=== PATIENT | female | born 1950 | race American Indian/Alaskan Native ===

== ENCOUNTER 2019-02-06 05:54 | Emergency (ER) | payer MEDICARE ==
[2019-02-06] MEDS ORDERED: REGLAN IV ONE (06:48)
[2019-02-06] MEDS ORDERED: BENADRYL IV ONE (06:48)
[2019-02-06] MEDS ORDERED: TORADOL IV ONE (06:48)
[2019-02-06 06:49] LABS: Basophils # (Auto) 0.1 K/mm3 (0.0-0.1); Basophils % (Auto) 0.6 % (0.0-1.8); Eosinophils # (Auto) 0.1 K/mm3 (0.0-0.4); Hematocrit 38.2 % (30.3-42.9); Hemoglobin 12.7 gm/dl (10.1-14.3); Lymphocytes # (Auto) 1.6 K/mm3 (1.2-5.4); Lymphocytes % (Auto) 16.7 % (13.4-35.0); Mean Corpuscular HGB Conc 33 % (30-34); Mean Corpuscular Volume 84 fl (79-97); Monocytes # (Auto) 0.4 K/mm3 (0.0-0.8); Monocytes % (Auto) 4.6 % (0.0-7.3); Platelet Count 234 K/mm3 (140-440); Red Blood Count 4.54 M/mm3 (3.65-5.03); Red Cell Distribution Width 15.5 % (13.2-15.2)
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
[2019-02-06 07:00] LABS: INR 0.95 (0.87-1.13)
[2019-02-06 07:01] LABS: Partial Thromboplastin Time 36.2 Sec. (24.2-36.6)
[2019-02-06 07:03] LABS: BUN/Creatinine Ratio 23; Blood Urea Nitrogen 18 mg/dL (7-17); Calcium 9.8 mg/dL (8.4-10.2); Hemolysis Index 58
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
[2019-02-06] MEDS ORDERED: NACL 0.9% 1000 ML 1,000 ML IV ONE (08:54)
[2019-02-06] MEDS ORDERED: SOLU-Medrol IV ONE (10:27)
[2019-02-06 13:09] VITALS: BP 147/72
== END 2019-02-06 13:23 | disposition home or self-care (01) ==
LOC: ED 05:54
DX: G43.909 Migraine, unspecified, not intractable, without status migrainosus (principal); I10 Essential (primary) hypertension; E11.9 Type 2 diabetes mellitus without complications; Z90.710 Acquired absence of both cervix and uterus
CPT/HCPCS: 36415; 70450; 80048; 85025; 85610; 85652; 85730; 86140; 96361; 96374; 96375; 99284; J1200; J1885; J2765; J2930; J7030